=== PATIENT | female | born 1940 | race Caucasian/White ===

== ENCOUNTER → 2023-12-13 07:34 | Outpatient (REF) | payer OTHER, SELFPAY ==
[2023-12-13 09:13] LABS: ALT (SGPT) 12 U/L (0-35); AST (SGOT) 22 U/L (14-36); Albumin 3.9 g/dl (3.5-5.0); Alkaline Phosphatase 108 U/L (38-126); Blood Urea Nitrogen 14 mg/dl (7-17); Calcium 9.4 mg/dl (8.4-10.2); Carbon Dioxide 29 mmol/L (22-30); Chloride 102 mmol/L (98-107); Glucose 129 mg/dl (70-99); HDL Cholesterol 65 mg/dl; LDL Cholesterol, Calculated 79 mg/dl; Sodium 141 mmol/L (135-145); Total Bilirubin 1.1 mg/dl (0.2-1.3); Total Cholesterol 181 mg/dl (50-199); Total Protein 6.7 g/dl (6.3-8.2); Triglyceride 186 mg/dl (10-149); Very Low Density Lipoprotein 37 mg/dl (0-30); eGFR > 60.00
[2023-12-13 09:22] LABS: Potassium 3.8 mmol/L (3.5-5.1)
[2023-12-13 09:27] LABS: Free T4 1.11 ng/dl (0.78-2.19)
[2023-12-13 09:42] LABS: TSH 5.76 uIU/ml (0.47-4.68)
== END ==
LOC: REG 07:34
PROVIDERS: ATTENDING PHYSICIAN Internal Medicine Geriatric Medicine
DX: I48.0 Paroxysmal atrial fibrillation (principal); I25.10 Atherosclerotic heart disease of native coronary artery without angina pectoris; I35.0 Nonrheumatic aortic (valve) stenosis; Z95.1 Presence of aortocoronary bypass graft; I10 Essential (primary) hypertension; E78.2 Mixed hyperlipidemia; R73.01 Impaired fasting glucose; E03.8 Other specified hypothyroidism; B37.2 Candidiasis of skin and nail; Z13.31 Encounter for screening for depression; E55.9 Vitamin D deficiency, unspecified
CPT/HCPCS: 36415; 80053; 80061; 84439; 84443

== ENCOUNTER → 2024-07-13 14:58 | Outpatient (REF) | payer OTHER, SELFPAY | LOC: HWRCS 14:58 | PROVIDERS: ATTENDING PHYSICIAN Internal Medicine Cardiovascular Disease; FAMILY PHYSICIAN Internal Medicine Geriatric Medicine | DX: I25.10 Atherosclerotic heart disease of native coronary artery without angina pectoris (principal); I35.0 Nonrheumatic aortic (valve) stenosis | CPT/HCPCS: 93306 ==